=== PATIENT | female | born 1960 | race Caucasian/White ===

== ENCOUNTER 2021-10-03 09:59 | Inpatient (IN) ==
[2021-10-03] MEDS ORDERED: SODIUM CHLORIDE 0.9% 500 ML IV STA (11:39)
[2021-10-03] MEDS ORDERED: MoRPHine SULFATE 4 MG/ML 1 ML CARP\\VIAL IV STA (11:39)
[2021-10-03] MEDS ORDERED: ONDANSETRON INJ 2 MG/ML 2 ML VIAL IV STA (11:39)
--- NOTE | 2021-10-03 11:57 | Emergency Department Note ---
History of Present Illness General Chief complaint: Back Injury/Pain Stated complaint: BACK PAIN, SHOT FOR PAIN MADE IT WORSE Time Seen by Provider: 10/03/21 11:31 Source: patient and family (Spouse who is at the bedside) Mode of arrival: ambulatory Limitations: no limitations History of Present Illness Maximum Pain Intensity: 10 This patient is a 61-year-old female who comes in with back pain. Has had this since about Thanksgiving there is no injury is on the left side it does radiate down her anterior leg she did have an MRI done at [facility] she tells me. She is been followed by [facility] and in fact saw Dr. Lim today who told her that she needed a shot and or surgery they attempted to do an injection but she does not feel it made her any better in fact made her feel worse and was told to come to the ER. She has some numbness and tingling in her left thigh. Nothing particular aches are better or worse. She had normal bowel and bladder function no injury. She has a COVID vaccine. No chest pain, shortness breath, or cough. No dysuriaor hematuria Home Medications Medication Instructions Recorded Confirmed Type lorazepam 0.5 mg tablet (Ativan) 0.5 mg PO BID PRN 03/19/19 10/03/21 History lactobacillus combination no.8 3 3,000 mmu cells PO DAILY 09/23/19 10/03/21 History billion cell capsule (Adult Probiotic) cholecalciferol (vitamin D3) 25 25 mcg PO DAILY 08/24/20 10/03/21 History mcg (1,000 unit) capsule pantoprazole 40 mg tablet,delayed 40 mg PO BID #180 tab 08/24/20 10/03/21 Rx release famotidine 40 mg tablet 40 mg PO DAILY #30 tab 09/23/20 10/03/21 Rx gabapentin 300 mg capsule 300 mg PO QID 10/03/21 10/03/21 History multivitamin 1 tab PO DAILY 10/03/21 10/03/21 History Allergies Allergy/AdvReac Type Severity Reaction Status Date / Time prednisone AdvReac Unknown Anxiety Unverified 10/03/21 11:50 Past Med/Surg History Medical History (Updated 10/03/21 @ 19:34 by Jason Reece MD) Hyperlipidemia pt denies, no meds 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, 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 Trigeminal neuralgia pt denies Surgical History H/O colonoscopy History of appendectomy History of esophagogastroduodenoscopy (EGD) (03/2019) History of left breast biopsy benign History of tonsillectomy History of tooth extraction Family History Family/Other Myocardial infarction Father Family history of reaction to anesthesia difficulty waking Mother Family history of reaction to anesthesia difficulty waking Social History Smoking Status: Never smoker Second Hand Exposure: Yes (father smoked); Hx Alcohol Use: Yes Alcohol type: wine Hx Substance Use: No Preferred Language: Bulgarian Communication Ability: Effective Seo Intern Required: No Beliefs That Will Affect Care: None Current Living Situation: Spouse and Family Current Living Situation Comment: Lives with , son, son's girlfriend and grandchild Other Information That Helps Us Care for You: No Feels Safe at Home: Yes Safety Concerns: Feels Safe At This Time Assistive Devices: Glasses Review of Systems A total of 10 systems reviewed and were otherwise negative Physical Exam Vital Signs Vital Signs - 24 hr 10/03/21 10:08 Temperature 36.2 C L Temperature Source Temporal Artery Scan Pulse Rate 82 Respiratory Rate 20 Respiratory Effort / Characteristics Non-Labored Respiratory Depth Normal Blood Pressure 140/97 Blood Pressure Mean 111 Pulse Oximetry 100 Oxygen Delivery Method Room Air Sepsis Recent Fever Within 48 Hours No Sepsis New/Unexplained Change in Mental Status N/A Sepsis Action Taken by Nursing No Action Required General: Well developed well nourished female who appears significantly uncomfortable secondary to pain in no acute distress, breathing comfortably on room air. Normal speech HEENT: Normal cephalic atraumatic. Pupils are equal round and reactive to light. Extraocular movements are intact. Oropharynx is pink with moist mucous membranes. No swelling of the mouth lips or tongue. Neck: Supple with a midline trachea. No meningeal signs or stiffness, no JVD or bruits. No Stridor. Chest: Clear to auscultation bilaterally. No wheezes or rhonchi. No increased work of breathing. Heart: Regular rate and rhythm without murmurs or gallops. Abdomen: Soft nontender, nondistended without rebound guarding or rigidity. Extremities: No cyanosis clubbing or edema. No calf tenderness or assymetry Spine/Back. Non tender to palpation. No CVA tenderness Skin: Good turgor without rashes. Neurologic exam: Cranial nerves two through 12 are intact. Motor and sensation are intact and symmetrical throughout. She does have intact reflexes on the left patella and Achilles that are symmetrical to the right. Course Administered Medications Gabapentin (Gabapentin 300 Mg Cap) 300 mg PO QID ALBERTINA Stop: 11/02/21 16:59 Last Admin: 10/03/21 18:21 Dose: 300 mg Documented by: [id number] Hydromorphone HCl (Hydromorphone Inj 1 Mg/Ml Syringe) 1 mg IV Q3H PRN PRN Reason: severe pain (scale 7-10) Stop: 10/17/21 12:05 Last Admin: 10/03/21 13:19 Dose: 1 mg Documented by: [id number] Dexamethasone 8 mg/ Syringe 2 mls @ 1 mls/min IV Q8H [facility] Stop: 10/04/21 06:01 Last Admin: 10/03/21 15:19 Dose: 1 mls/min Documented by: [id number] Lactated Ringer's (Lr) 1,000 mls @ 75 mls/hr IV .[id number] [facility] Stop: 11/02/21 12:14 Last Admin: 10/03/21 14:20 Dose: 75 mls/hr Documented by: [id number] Discontinued Medications Sodium Chloride (Nss) 500 mls @ 999 mls/hr IV .Q31M ST[facility] Stop: 10/03/21 12:09 Last Infusion: 10/03/21 12:48 Dose: 0 mls/hr Documented by: [id number] Admin: 10/03/21 12:15 Dose: 999 mls/hr Documented by: [id number] Morphine Sulfate (Morphine Sulfate 4 Mg/Ml 1 Ml Carp\Vial) 4 mg IV NOW STA Stop: 10/03/21 11:40 Last Admin: 10/03/21 12:15 Dose: 4 mg Documented by: [id number] Ondansetron HCl (Ondansetron Inj 2 Mg/Ml 2 Ml Vial) 4 mg IV NOW STA Stop: 10/03/21 11:40 Last Admin: 10/03/21 12:15 Dose: 4 mg Documented by: [id number] Medical Decision Making Differential Diagnosis Back pain, sciatica, lumbar disc disease, electrolyte or metabolic abnormality, infection, Covid Medical Records Attestation: I reviewed the patient's medical records. Home Medications Current Medication List: was personally reviewed by me Laboratory Data Attestation: I reviewed the patient's lab results. Result diagrams: 10/03/21 12:01 10/03/21 12: Lab Results 10/03/21 10/03/21 Range/Units 12: 12: WBC 11.11 H (4.8-10.8) K/uL RBC 4.45 (4.2-5.4) M/uL Hgb 14.1 (12.0-16.0) g/dL Hct 39.9 (37-47) % MCV 89.7 (80-100) fL MCH 31.7 (25-34) pg MCHC 35.3 (32-36) g/dL RDW Std Deviation 39.9 (36.4-46.3) fL RDW Coeff of Cathryn 12.2 (11.5-14.5) % Plt Count 287 (130-400) K/uL MPV 11.1 H (7.4-10.4) fL Immature Gran % (Auto) 0.4 % Neut % (Auto) 81.6 % Lymph % (Auto) 14.8 % [place] % (Auto) 2.8 % Eos % (Auto) 0.2 % Baso % (Auto) 0.2 % Neut # (Auto) 9.08 H (1.4-6.5) K/uL Lymph # (Auto) 1.64 (1.2-3.4) K/uL [place] # (Auto) 0.31 (0.11-0.59) K/uL Eos # (Auto) 0.02 (0-0.5) K/uL Baso # (Auto) 0.02 (0-0.2) K/uL Immature Gran # (Auto) 0.04 H (0.00-0.02) K/uL Sodium 136 (136-145) mmol/L Potassium 3.8 (3.5-5.1) mmol/L Chloride 103 (98-107) mmol/L Carbon Dioxide 24 (21-32) mmol/L Anion Gap 9 (3-11) BUN 12 (6-23) mg/dl Creatinine 0.79 (0.6-1.2) mg/dl Est Cr Clr Drug Dosing Not Reportable Est GFR ( Amer) 92.3 ml/min Est GFR (Non-Af Amer) 79.7 ml/min BUN/Creatinine Ratio 15.2 (10-20) Glucose 106 H (70-99(Fasting)) mg/dl Calcium 9.8 (8.5-10.1) mg/dl Total Bilirubin 0.7 (0.2-1.0) mg/dl AST 17 (13-39) U/L ALT 23 (7-52) U/L Alkaline Phosphatase 60 (34-104) U/L Total Protein 7.1 (6.0-8.3) gm/dl Albumin 4.5 (3.4-5.0) gm/dl Globulin 2.6 (2.5-4.0) gm/dl Albumin/Globulin Ratio 1.7 (0.9-2) Lipase 13 (11-82) U/L MDM Narrative This patient comes in as described above she was referred over by orthopedist after she has had continuing pain in fact she seems to have gotten worse since she had her injection today. IV access were established was given morphine 4 mg IV and Zofran 4 mg IV. Blood work was obtained and I did attempt to call Dr. Abad. I did talk to Dr. Jenniffer Hamilton's PA she is going to admit the patient for pain management and further orthospine evaluation and she may ultimately need surgery. I did review the patient's history with her and the patient does have indeed an L2-3 disc on the left which is likely causing her symptoms. She has no acute electrolyte or metabolic abnormalities. White count is mildly elevated but she has nothing else to suggest infection. She will be admitted for pain management and spine evaluation Impression & Plan Back pain, Lumbar radiculopathy, Degenerative disc disease, lumbar, Lab test negative for COVID-19 virus Discharge Plan Visit Data Chief Complaint: Back Injury/Pain Stated Complaint: BACK PAIN, SHOT FOR PAIN MADE IT WORSE ED Provider: Jason Reece Discharge Problem: Back pain, Lumbar radiculopathy, Degenerative disc disease, lumbar, Lab test negative for COVID-19 virus Patient Disposition: Admitted As Inpatient Discharge Instructions Interventions: ED Discharge Assessment Last Done: 10/03/21 16:04
[2021-10-03] MEDS ORDERED: ACETAMINOPHEN 500 MG TAB PO PRN (12:06)
[2021-10-03] MEDS ORDERED: METOCLOPRAMIDE HCL INJ 5 MG/ML 2 ML VIAL IV PRN (12:06)
[2021-10-03] MEDS ORDERED: PROMETHAZINE HCL 12.5 MG in SODIUM CHLORIDE 0.9% 50 ML IV PRN (12:06)
[2021-10-03] MEDS ORDERED: oxyCODONE HCL IR 5 MG TAB (IMMEDIATE RELEASE) PO PRN (12:06)
[2021-10-03] MEDS ORDERED: diphenhydrAMINE Capsule 25 MG CAP PO PRN (12:06)
[2021-10-03] MEDS ORDERED: ONDANSETRON 4 MG OD TAB PO PRN (12:06)
[2021-10-03] MEDS ORDERED: ACETAMINOPHEN 1,000 MG/100 ML VIAL IV PRN (12:06)
[2021-10-03] MEDS ORDERED: traMADol HCL 50 MG TABLET PO PRN (12:06)
[2021-10-03] MEDS ORDERED: ONDANSETRON INJ 2 MG/ML 2 ML VIAL IV PRN (12:06)
[2021-10-03] MEDS ORDERED: LORazepam 2 MG/1 ML VIAL IV PRN (12:06)
[2021-10-03] MEDS ORDERED: HYDROmorphone INJ 0.5 MG/0.5 ML SYR IV PRN (12:06)
[2021-10-03] MEDS ORDERED: NALOXONE HCL 0.4 MG/1 ML VIAL/CARP IV PRN (12:06)
[2021-10-03 12:16] LABS: Basophils # (auto) 0.02 K/uL (0-0.2); Basophils % (auto) 0.2 %; Eosinophils # (auto) 0.02 K/uL (0-0.5); Eosinophils % (auto) 0.2 %; Hematocrit (blood only) 39.9 % (37-47); Hemoglobin 14.1 g/dL (12.0-16.0); Immature Granulocytes # (auto) 0.04 K/uL (0.00-0.02); Immature Granulocytes % (auto) 0.4 %; Lymphocytes # (auto) 1.64 K/uL (1.2-3.4); Lymphocytes % (auto) 14.8 %; Mean Corpuscular Hemoglobin 31.7 pg (25-34); Mean Corpuscular Hgb Conc 35.3 g/dL (32-36); Mean Corpuscular Volume 89.7 fL (80-100); Mean Platelet Volume 11.1 fL (7.4-10.4); Monocytes # (auto) 0.31 K/uL (0.11-0.59); Monocytes % (auto) 2.8 %; Neutrophils # (auto) 9.08 K/uL (1.4-6.5); Neutrophils % (auto) 81.6 %; Platelet Count 287 K/uL (130-400); RDW Coefficient of Variation 12.2 % (11.5-14.5); RDW Standard Deviation 39.9 fL (36.4-46.3); Red Blood Count 4.45 M/uL (4.2-5.4); White Blood Count 11.11 K/uL (4.8-10.8)
[2021-10-03 12:36] LABS: Alanine Aminotransferase 23 U/L (7-52); Albumin Globulin Ratio 1.7 (0.9-2); Albumin Level 4.5 gm/dl (3.4-5.0); Alkaline Phosphatase 60 U/L (34-104); Anion Gap 9 (3-11); Aspartate Aminotransferase 17 U/L (13-39); BUN Creatinine Ratio 15.2 (10-20); Bilirubin,Total 0.7 mg/dl (0.2-1.0); Blood Urea Nitrogen 12 mg/dl (6-23); Calcium 9.8 mg/dl (8.5-10.1); Carbon Dioxide 24 mmol/L (21-32); Chloride 103 mmol/L (98-107); Est GFR (African American) 92.3 ml/min; Est GFR (Non-African American) 79.7 ml/min; Globulin 2.6 gm/dl (2.5-4.0); Glucose 106 mg/dl (70-99(Fasting)); Lipase 13 U/L (11-82); Potassium 3.8 mmol/L (3.5-5.1); Sodium 136 mmol/L (136-145); Total Protein 7.1 gm/dl (6.0-8.3)
--- NOTE | 2021-10-03 12:58 | Electrocardiogram Report ---
Test Reason : Blood Pressure : / mmHG Vent. Rate : 077 BPM Atrial Rate : 077 BPM P-R Int : 168 ms QRS Dur : 084 ms QT Int : 354 ms P-R-T Axes : 051 020 036 degrees QTc Int : 400 ms Poor data quality, interpretation may be adversely affected Normal sinus rhythm Normal ECG No previous ECGs available Confirmed by Stoney Kovacs ([id number]) on 10/03/2021 12:58:19 PM Referred By: ED Confirmed By:Elpidio Kovacs
[2021-10-03] MEDS: HYDROmorphone INJ 1 MG/ML SYRINGE IV PRN (13:19)
[2021-10-03] MEDS: LACTATED RINGER'S 1,000 ML IV SCH ×2 (14:20→22:31)
[2021-10-03] MEDS: dexAMETHasone 8 MG in SYRINGE 0 ML IV SCH ×2 (15:19→21:04)
--- NOTE | 2021-10-03 16:09 | Hospitalist Consultation ---
Date of Consultation October 03, 2021 Assessment & Plan (1) Back pain: Lower back pain with radiculopathy- Primary orthopaedics - Diet per Orthopaedics - IVF per Orthopaedics - VTE prophylaxis per Orthopaedics - Pain control per Orthopaedics- appropriate with rescue Narcan available and Pain is controlled - ABX per Orthopaedics (2) GERD (gastroesophageal reflux disease): Chronic GERD with Gastropareses - Change Protonix 40mg PO BID to IV while NPO - Continue throughout hospitalization while on steroids (3) Anxiety: On Ativan PO PRN at home - IV Ativan and PO Ativan available (4) Gastroparesis: Follows GI Supervising Physician Co-Signing Physician Notes SILVANO Supervision note: I have personally seen and examined the patient and discussed and verified the [place] points of the history and physical along with the plan with SILVANO [place] with the following exceptions and/or additions: This patient is a 61-year-old female with history of lower back pain with left lower extremity radiculopathy since June but acutely worse in the last several days. She was seen by pain management today and had an injection and had severe pain. She has not been able to get out of bed for the last 3 days. She was referred to the ER for pain control and admitted under the orthopedic spine service. The hospital service was consulted for medical management and preoperative assessment. She denies any chest pain or shortness of breath, and before her back pain became more severe she was quite active. No history of cardiac or pulmonary issues. History and ROS reviewed as above Vitals reviewed Gen: AAOx3, NAD HEENT: Anicteric sclerae, EOMI CV: RRR no mgr nl S1S2 Pulm: CTAB no wcr Abd: +BS soft NT ND no masses or hernias Ext: No edema, 2+ DP pulses Skin: No rashes, warm/dry Neuro: Full strength throughout but with pain with movement of the left lower extremity Labs reviewed, ECG reviewed 61-year-old female here with intractable pain secondary to lumbar radiculopathy, admitted for further evaluation management by orthopedic spine surgeon From a medical standpoint, she is at low perioperative risk for cardiovascular morbidity mortality and should proceed with any medical procedure as desired including intermediate risk surgery with orthopedics The hospitalist service will continue to follow along for now History of Present Illness Reason for Consultation: Medical managment Requesting Physician: Dr. Abad Attending Physician: Dr. Abad History of Present Illness 61 YOF with past medical history of: gastroparesis, GERD, back pain, anxiety. Patient has been having back pain since June- failed conservative therapy and was referred to [facility] for worsening of her lower back pain failing/not able achieve therapeutics from injection attempted this morning. Patient is admitted under Dr. Abad. Hospitalist was consulted for medical management. The patient denies any cardio-pulmonary disease and prior to her onset of lower back pain she was active person who went to the gym daily and enjoyed walking. She had no activity limitations. She does not smoke and occasionally drinks alcohol. She recalls no history of mitral valve problems listed in her medical history. She is followed by gastroenterology for gastroparesis and is currently on Pantoprazole 40mg PO BID. She reports having an UTI last month and had finished her ABX with resolution of symptoms. Her pain is currently controlled following interventions ordered by primary service. She remains NPO for further surgical evaluation. She has had anesthesia before without any complications. She is low risk for surgical procedure. Her perioperative risk estimation for perioperative myocardial infarction or cardiac arrest is: 0.02% COVID test is: NEGATIVE Additions: - Protonix 40mg IV BID Allergies Allergy/AdvReac Type Severity Reaction Status Date / Time prednisone AdvReac Unknown Anxiety Unverified 10/03/21 11:50 Home Medications Medication Instructions Recorded Confirmed Type lorazepam 0.5 mg tablet (Ativan) 0.5 mg PO BID PRN 03/19/19 10/03/21 History lactobacillus combination no.8 3 3,000 mmu cells PO DAILY 09/23/19 10/03/21 History billion cell capsule (Adult Probiotic) cholecalciferol (vitamin D3) 25 25 mcg PO DAILY 08/24/20 10/03/21 History mcg (1,000 unit) capsule pantoprazole 40 mg tablet,delayed 40 mg PO BID #180 tab 08/24/20 10/03/21 Rx release famotidine 40 mg tablet 40 mg PO DAILY #30 tab 09/23/20 10/03/21 Rx gabapentin 300 mg capsule 300 mg PO QID 10/03/21 10/03/21 History multivitamin 1 tab PO DAILY 10/03/21 10/03/21 History Patient History Medical History (Updated 10/03/21 @ 16:01 by SILVANO Matthews) Hyperlipidemia pt denies, no meds 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, 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 Trigeminal neuralgia pt denies Surgical History H/O colonoscopy History of appendectomy History of esophagogastroduodenoscopy (EGD) (03/2019) History of left breast biopsy benign History of tonsillectomy History of tooth extraction Family History Family/Other Myocardial infarction Father Family history of reaction to anesthesia difficulty waking Mother Family history of reaction to anesthesia difficulty waking Social History Smoking Status: Never smoker Second Hand Exposure: Yes (father smoked); Hx Alcohol Use: Yes Alcohol type: wine Hx Substance Use: No Preferred Language: Japanese Communication Ability: Effective Subacute Nurse Required: No Beliefs That Will Affect Care: None Current Living Situation: Spouse and Family Current Living Situation Comment: Lives with , son, son's girlfriend and grandchild Feels Safe at Home: Yes Assistive Devices: Glasses Review of Systems Review of Systems: REVIEW OF SYSTEMS: Constitutional: No fever, sweats or chills Eyes: No diplopia, no worsening or blurred vision ENT: normal hearing, no trouble swallowing Respiratory: No cough, sputum, dyspnea at rest or on exertion Cardiovascular: No chest pain, tightness or palpitations Abdomen: No pain, nausea, vomiting, diarrhea or constipation Musculoskeletal: (+) back pain, with weakness, No calf pain, swelling Neurologic: (+) numbness tingling, weakness Psychiatric: (+) anxiety; NO depression Skin: No rash or itch Physical Exam Physical Exam: PHYSICAL EXAM: General: awake, alert, no apparent distress Head: Normocephalic, atraumatic ENT: PERRL, EOMI, no pharyngeal exudate, mucous membranes moist Neuro: AAO x 3, speech clear and appropriate, strength intact bilaterally 5/5, sensation intact and equal all extremities and dermatomes, no pronator drift, radiculopathy with acute pain onset along the L3-L5 distribution Chest: equal rise and fall of the chest, no accessory muscle use, no heaves or thirlls, Clear to auscultation, on room air, Cardiac: Regular rate and rhythm, telemetry reviewed- NSR, skin warm dry, cap refill <3 seconds, peripheral pulses +2 no JVD, no murmur, no edema GI: NABS x 4 quadrants, soft, nontender to palpation, no rebound, guarding or tenderness : Spontaneously voiding, no pain, no CVA tenderness, Extremities: Normal inspection, no peripheral edema or erythema, calfs nontender to palpation Psych: Normal mood and affect Skin: no rash or erythema Results & Data Results & Data ([facility]) Vital Signs (Past 12 Hours) Vital Signs Temp Pulse Resp BP Pulse Ox 10/03/21 10:08 36.2 C L 82 20 140/97 100 Laboratory Results Abnormal lab results 10/03/21 10/03/21 Range/Units 12:01 12:01 WBC 11.11 H (4.8-10.8) K/uL MPV 11.1 H (7.4-10.4) fL Neut # (Auto) 9.08 H (1.4-6.5) K/uL Immature Gran # (Auto) 0.04 H (0.00-0.02) K/uL Glucose 106 H (70-99(Fasting)) mg/dl Diagnostic Findings No films available Medications Administered Hydromorphone HCl (Hydromorphone Inj 1 Mg/Ml Syringe) 1 mg IV Q3H PRN PRN Reason: severe pain (scale 7-10) Stop: 10/17/21 12:05 Last Admin: 10/03/21 13:19 Dose: 1 mg Documented by: [id number] Dexamethasone 8 mg/ Syringe 2 mls @ 1 mls/min IV Q8H [facility] Stop: 10/04/21 06:01 Last Admin: 10/03/21 15:19 Dose: 1 mls/min Documented by: [id number] Lactated Ringer's (Lr) 1,000 mls @ 75 mls/hr IV .[id number] [facility] Stop: 11/02/21 12:14 Last Admin: 10/03/21 14:20 Dose: 75 mls/hr Documented by: [id number] Discontinued Medications Sodium Chloride (Nss) 500 mls @ 999 mls/hr IV .Q31M [facility] Stop: 10/03/21 12:09 Last Infusion: 10/03/21 12:48 Dose: 0 mls/hr Documented by: [id number] Admin: 10/03/21 12:15 Dose: 999 mls/hr Documented by: [id number] Morphine Sulfate (Morphine Sulfate 4 Mg/Ml 1 Ml Carp\Vial) 4 mg IV NOW STA Stop: 10/03/21 11:40 Last Admin: 10/03/21 12:15 Dose: 4 mg Documented by: [id number] Ondansetron HCl (Ondansetron Inj 2 Mg/Ml 2 Ml Vial) 4 mg IV NOW STA Stop: 10/03/21 11:40 Last Admin: 10/03/21 12:15 Dose: 4 mg Documented by: [id number] Home Medications lorazepam 0.5 mg tablet (Ativan) 0.5 mg PO BID PRN 03/19/19 [History Confirmed 10/03/21] lactobacillus combination no.8 3 billion cell capsule (Adult Probiotic) 3,000 mmu cells PO DAILY 09/23/19 [History Confirmed 10/03/21] cholecalciferol (vitamin D3) 25 mcg (1,000 unit) capsule 25 mcg PO DAILY 08/24/20 [History Confirmed 10/03/21] pantoprazole 40 mg tablet,delayed release 40 mg PO BID #180 tab 08/24/20 [Rx Confirmed 10/03/21] famotidine 40 mg tablet 40 mg PO DAILY #30 tab 09/23/20 [Rx Confirmed 10/03/21] gabapentin 300 mg capsule 300 mg PO QID 10/03/21 [History Confirmed 10/03/21] multivitamin 1 tab PO DAILY 10/03/21 [History Confirmed 10/03/21] Active Medications Acetaminophen (Acetaminophen 500 Mg Tab) 1,000 mg PO Q8H PRN PRN Reason: MILD Pain Scale 1,2,3 & Pre PT Stop: 11/02/21 12:05 Diphenhydramine HCl (Diphenhydramine Capsule 25 Mg Cap) 25 mg PO Q6H PRN PRN Reason: Allergic Rhinitis/Insomnia Stop: 11/02/21 12:05 Hydromorphone HCl (Hydromorphone Inj 0.5 Mg/0.5 Ml Syr) 0.5 mg IV Q3H PRN PRN Reason: MOD pain (scale 4-6) & Pre PT Stop: 10/17/21 12:05 Hydromorphone HCl (Hydromorphone Inj 1 Mg/Ml Syringe) 1 mg IV Q3H PRN PRN Reason: severe pain (scale 7-10) Stop: 10/17/21 12:05 Last Admin: 10/03/21 13:19 Dose: 1 mg Documented by: Dexamethasone 8 mg/ Syringe 2 mls @ 1 mls/min IV Q8H [facility] Stop: 10/04/21 06:01 Last Admin: 10/03/21 15:19 Dose: 1 mls/min Documented by: Lactated Ringer's (Lr) 1,000 mls @ 75 mls/hr IV .[id number] [facility] Stop: 11/02/21 12:14 Last Admin: 10/03/21 14:20 Dose: 75 mls/hr Documented by: Promethazine HCl 12.5 mg/ (Sodium Chloride) 50.5 mls @ 202 mls/hr IV Q6H PRN PRN Reason: Nausea &/or Vomiting Stop: 11/02/21 12:05 Acetaminophen (Ofirmev) 1,000 mg in 100 mls @ 400 mls/hr IV Q8H PRN PRN Reason: Pain Rating 1-3 & Pre PT Stop: 10/04/21 12:06 Pantoprazole Sodium 40 mg/ (Syringe) 10 mls @ 5 mls/min IV BID [facility] Stop: 11/02/21 20:59 Lorazepam (Lorazepam 0.5 Mg Tab) 0.5 mg PO Q8H PRN PRN Reason: sedation/anxiety Stop: 11/02/21 12:05 Lorazepam (Lorazepam 2 Mg/1 Ml Vial) 0.5 mg IV Q8H PRN PRN Reason: Sedation/Anxiety Stop: 11/02/21 12:05 Metoclopramide HCl (Metoclopramide Hcl Inj 5 Mg/Ml 2 Ml Vial) 10 mg IV Q6H PRN PRN Reason: Nausea &/or Vomiting Stop: 11/02/21 12:05 Naloxone HCl (Naloxone Hcl 0.4 Mg/1 Ml Vial/Carp) 0.1 mg IV Q5M PRN PRN Reason: Oversedation/respiratory dep Stop: 11/02/21 12:05 Ondansetron HCl (Ondansetron Inj 2 Mg/Ml 2 Ml Vial) 4 mg IV Q6H PRN PRN Reason: Nausea &/or Vomiting Stop: 11/02/21 12:05 Ondansetron HCl (Ondansetron 4 Mg Od Tab) 4 mg PO Q6H PRN PRN Reason: Nausea Stop: 11/02/21 12:05 Oxycodone HCl (Oxycodone Hcl Ir 5 Mg Tab (Immediate Release)) 5 - 10 mg PO Q4H PRN PRN Reason: mod to severe pain Stop: 10/17/21 12:05 Tramadol HCl (Tramadol Hcl 50 Mg Tablet) 50 - 100 mg PO Q4H PRN PRN Reason: Moderate-Severe pain & Pre PT Stop: 11/02/21 12:05 ECG Additional Comments: Normal sinus rhythm Normal ECG No previous ECGs available Vent. Rate : 077 BPM Atrial Rate : 077 BPM P-R Int : 168 ms QRS Dur : 084 ms QT Int : 354 ms P-R-T Axes : 051 020 036 degrees QTc Int : 400 ms PG Care Time/CCT Total # of Minutes Spent Total Time Spent with Patient: Total time spent is greater than 50% in coordination of care (as documented) at patient's floor/unit and/or counseling patient: Coding Level of Care Code 04945 Inpt Consult Level 2 Diagnoses Back pain M54.9 GERD (gastroesophageal reflux disease) K21.9 Anxiety F41.9 Gastroparesis K31.84
[2021-10-03] MEDS: GABAPENTIN 300 MG CAP PO SCH ×2 (18:21→19:55)
[2021-10-03] MEDS: PANTOprazole 40 MG in SYRINGE 0 ML IV SCH (19:55)
[2021-10-03] MEDS ORDERED: PANTOprazole 40 MG TAB PO SCH (21:00)
[2021-10-03] MEDS: LORazepam 0.5 MG TAB PO PRN ×2 (21:09→22:31)
[2021-10-04] MEDS: HYDROmorphone INJ 1 MG/ML SYRINGE IV PRN ×4 (03:58→23:47)
[2021-10-04] MEDS: dexAMETHasone 8 MG in SYRINGE 0 ML IV SCH (05:18)
[2021-10-04] MEDS: GABAPENTIN 300 MG CAP PO SCH ×4 (08:29→20:58)
[2021-10-04] MEDS: CHOLECALCIFEROL 1,000 UNITS 25 MCG TAB PO SCH (08:29)
[2021-10-04] MEDS: FAMOTIDINE 40 MG TABLET PO SCH (08:30)
[2021-10-04] MEDS: PANTOprazole 40 MG in SYRINGE 0 ML IV SCH (08:30)
--- NOTE | 2021-10-04 08:46 | History & Physical Report ---
Date of Service October 04, 2021 Assessment & Plan (1) Lumbar radiculopathy: Plan: Patient is been admitted to Dr. Abad service. She has a known far lateral disc herniation at L3-4 on the left. This is consistent with her pain pattern. She has trialed and failed conservative therapy including physical therapy and pain management injections. She is unable to manage the pain at home. For presented to the emergency room. We have discussed pursuing surgical intervention in the form of a posterior lumbar decompression/fusion and interbody fusion at the L3-4 level. Risk, benefits, pros cons and alternative outlined in detail. Patient is comfortable with move moving forward with above- mentioned surgical planning. Admission and Anticipated Discharge Date Admission Date: October 03, 2021 History of Present Illness Chief Complaint: Worsening left lower extremity pain Primary Care Provider: Deshaun aPcheco PA-C Is a very pleasant 61-year-old female who presented to the ER yesterday after receiving the injection from Dr. Norton in the morning. The injection exacerbated her pain. Symptoms have been ongoing since June without precipitating accident, trauma, fall. She has declined over the past 3 days and unable to get out of bed. Normally she is quite active going to the gym and ambulating 5 to 6 miles a day. Current symptoms are 100% left lower extremity involving the left buttock left groin anterior thigh to her knee. Right leg is asymptomatic. Denies bowel bladder changes. She has been taking Tylenol for pain control at home. She has completed a course of physical therapy in June without improvement. Again received [address] Norton yesterday which exacerbated her symptoms therefore leading her to the emergency room. Allergies Allergy/AdvReac Type Severity Reaction Status Date / Time prednisone AdvReac Unknown Anxiety Unverified 10/03/21 11:50 Home Medications Medication Instructions Recorded Confirmed Type lorazepam 0.5 mg tablet (Ativan) 0.5 mg PO BID PRN 03/19/19 10/03/21 History lactobacillus combination no.8 3 3,000 mmu cells PO DAILY 09/23/19 10/03/21 History billion cell capsule (Adult Probiotic) cholecalciferol (vitamin D3) 25 25 mcg PO DAILY 08/24/20 10/03/21 History mcg (1,000 unit) capsule pantoprazole 40 mg tablet,delayed 40 mg PO BID #180 tab 08/24/20 10/03/21 Rx release famotidine 40 mg tablet 40 mg PO DAILY #30 tab 09/23/20 10/03/21 Rx gabapentin 300 mg capsule 300 mg PO QID 10/03/21 10/03/21 History multivitamin 1 tab PO DAILY 10/03/21 10/03/21 History Past Med/Surg History Medical History Hyperlipidemia pt denies, no meds 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, 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 Trigeminal neuralgia pt denies Surgical History H/O colonoscopy History of appendectomy History of esophagogastroduodenoscopy (EGD) (03/2019) History of left breast biopsy benign History of tonsillectomy History of tooth extraction Family History Family/Other Myocardial infarction Father Family history of reaction to anesthesia difficulty waking Mother Family history of reaction to anesthesia difficulty waking Social History Smoking Status: Never smoker Second Hand Exposure: Yes (father smoked); Hx Alcohol Use: Yes Alcohol type: wine Hx Substance Use: No Preferred Language: Danish Communication Ability: Effective 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 Beliefs That Will Affect Care: None marital status: Current Living Situation: Spouse and Family Current Living Situation Comment: Lives with , son, son's girlfriend and grandchild How many Children do You have: 1 Feels Safe at Home: Yes Assistive Devices: None Review of Systems Review of Systems: All systems reviewed & are unremarkable except as noted in HPI & below Physical Exam Physical Exam: She is lying in bed on her right side Moderate distress Alert and oriented x3 Positive straight leg raise on the left negative contralateral straight leg raise 4+/5 left quadricep 5/5 bilateral EHL, dorsiflexion, plantar flexion, hamstring, hip abductor and hip adductor bilaterally Constitutional: WD/WN, vitals as above Eyes: normal visual plunkett by confrontation ENMT: external ear and nose normal, oropharynx normal Neck: normal visual inspection Respiratory: normal respiratory effort Cardiovascular: Extremities: normal capillary refill Gastrointestinal (Abdomen): Inspection/Auscultation: abdomen normal to inspection Musculoskeletal: Spine: + pain with thoraco-lumbar ROM and + straight leg raise positive Extremities: extremities normal to inspection Skin: no rashes, warm and dry Neurologic: normal touch/pain/proprioception and moves all extremities Psychiatric: A+Ox3, euthymic affect Results & Data Results & Data ([facility]) Vital Signs (Past 12 Hours) Vital Signs Temp Pulse Pulse Resp BP Pulse Ox 10/04/21 07:47 36.4 C L 82 18 110/69 94 10/03/21 22:29 36.6 C 84 18 131/79 97
[2021-10-04] MEDS: LORazepam 0.5 MG TAB PO PRN (08:55)
[2021-10-04] MEDS: LACTATED RINGER'S 1,000 ML IV SCH (12:06)
[2021-10-04] MEDS ORDERED: fentaNYL citrate 100 MCG/2 ML VIAL ONE (12:24)
[2021-10-04] MEDS ORDERED: MIDAZOLAM HCL 1 MG/ML 2ML VIAL ONE (12:24)
--- NOTE | 2021-10-04 12:52 | Hospitalist Progress Note ---
Date of Service October 04, 2021 Assessment & Plan (1) Back pain: Plan: Lower back pain with radiculopathy- Primary orthopedics - Diet per Orthopedics - IVF per Orthopedics - VTE prophylaxis per Orthopedics - Pain control per Orthopedics-appropriate with rescue Narcan available and Pain is controlled - Preop ABX per Orthopedics (2) GERD (gastroesophageal reflux disease): Plan: Chronic GERD with Gastroparesis - Change Protonix 40mg PO BID to IV while NPO - Continue throughout hospitalization while on steroids (3) Anxiety: Plan: On Ativan PO PRN at home - IV Ativan and PO Ativan available (4) Gastroparesis: Plan: Follows GI Plan: At this point patient is medically stable to proceed with planned surgical intervention this afternoon. Recommend follow up labs in AM including H&H and B MP. Can advance diet as tolerated following procedure and transition medications back to p.o. At this time I have no further recommendations for this patient. Medicine will sign off, will continue to do daily chart checks. Thank you for allowing us to participate in her care. Admission and Anticipated Discharge Date Admission Date: October 03, 2021 Supervising Physician Co-Signing Physician Notes chart reviewed, case d/w Gita Wynn PAC. as above Subjective Patient seen on daily rounds this morning. Other than her complaints of intractable low back pain with radiation down her left lower extremity she has no complaints. She denies chest pain, shortness of breath, nausea, vomiting, diarrhea, headache, or complaints. Denies fever/chills. She is for lumbar fusion with Dr. Abad this afternoon. Review of Systems Review of Systems: REVIEW OF SYSTEMS: Constitutional: No fever, sweats or chills Eyes: No diplopia, no worsening or blurred vision ENT: normal hearing, no trouble swallowing Respiratory: No cough, sputum, dyspnea at rest or on exertion Cardiovascular: No chest pain, tightness or palpitations Abdomen: No pain, nausea, vomiting, diarrhea or constipation Musculoskeletal: (+) back pain w/ radiation down L leg and weakness, No calf pain, swelling Neurologic: (+) numbness tingling, weakness Psychiatric: (+) anxiety; NO depression Skin: No rash or itch Physical Exam Physical Exam: GENERAL: 61 yo well-developed, well-nourished WF. NAD. LUNGS: Clear to auscultation bilaterally. CARDIOVASCULAR: Regular rate and rhythm. ABDOMEN: Soft, non-tender and non-distended. BS normal x 4 quad. EXTREMITIES: No edema. Non-tender. Peripheral pulses +2/4. NEUROLOGIC: A&O x3. PSYCHIATRIC: Cooperative. Appropriate mood and affect. SKIN: Warm, dry, intact. No rashes or lesions. Results & Data Results & Data ([facility]) Vital Signs (Past 12 Hours) Vital Signs Temp Pulse Resp BP Pulse Ox 10/04/21 11:00 36.7 C 76 18 119/73 93 10/04/21 07:47 36.4 C L 82 18 110/69 94 Laboratory Results No labs collected this morning PG Care Time/CCT Total # of Minutes Spent Total Time Spent with Patient: Total time spent is greater than 50% in coordination of care (as documented) at patient's floor/unit and/or counseling patient: Coding Level of Care Code 92209 Subseq Hosp Care Lvl 2 Diagnoses Back pain M54.9 GERD (gastroesophageal reflux disease) K21.9 Anxiety F41.9 Gastroparesis K31.84
--- NOTE | 2021-10-04 14:14 | History & Physical Bridge Note ---
Date of Service October 04, 2021 History & Physical Bridge Note I have examined the patient, reviewed the History & Physical and in the interval since the performance of the History & Physical I have noted the following changes of clinical significance: no changes noted Lumbar decompression fusion L3-L4
[2021-10-04] MEDS ORDERED: ceFAZolin 2,000 MG/15 ML IV PUSH IV ONE (14:21)
[2021-10-04] MEDS ORDERED: ONDANSETRON INJ 2 MG/ML 2 ML VIAL IV PRN ×2 (14:22→17:29)
[2021-10-04] MEDS ORDERED: HYDROmorphone INJ 1 MG/ML SYRINGE IV PRN (14:22)
[2021-10-04] MEDS ORDERED: ATROPINE SULFATE 0.1 MG/ML 10ML SYR IV PRN (14:22)
[2021-10-04] MEDS ORDERED: PROMETHAZINE HCL 12.5 MG in SODIUM CHLORIDE 0.9% 50 ML IV PRN ×2 (14:22→17:29)
--- NOTE | 2021-10-04 14:22 | Anesthesiology Consultation ---
Date of Service October 04, 2021 Assessment & Plan (1) Encounter for pre-operative examination: Chart Review Chart Review: Acceptable Risk for Surgery History Surgery Operation Date: 10/04/21 12:30 Proposed Procedures p L3-L4 Posterior Lumbar Fusion with Interbody Fusion - Benjamin Abad DO Operation Date: 10/05/21 12:45 Proposed Procedures p L3-L4 Posterior Lumbar Fusion with Interbody Fusion - Benjamin Abad DO Height/Weight Height: 5 ft 4 in Weight: 75 kg Allergies Allergy/AdvReac Type Severity Reaction Status Date / Time prednisone AdvReac Unknown Anxiety Unverified 10/03/21 11:50 Medications Home Medications Medication Instructions Recorded Confirmed Last Taken lorazepam 0.5 mg tablet (Ativan) 0.5 mg PO BID PRN 03/19/19 10/03/21 04/05/19 09:00 lactobacillus combination no.8 3 3,000 mmu cells PO DAILY 09/23/19 10/03/21 Unknown billion cell capsule (Adult Probiotic) cholecalciferol (vitamin D3) 25 25 mcg PO DAILY 08/24/20 10/03/21 Unknown mcg (1,000 unit) capsule pantoprazole 40 mg tablet,delayed 40 mg PO BID #180 tab 08/24/20 10/03/21 Unknown release famotidine 40 mg tablet 40 mg PO DAILY #30 tab 09/23/20 10/03/21 Unknown gabapentin 300 mg capsule 300 mg PO QID 10/03/21 10/03/21 Unknown multivitamin 1 tab PO DAILY 10/03/21 10/03/21 Unknown Active Medications Generic Name Dose Route Start Last Admin Trade Name Balajiq PRN Reason Stop Dose Admin Famotidine 40 mg 10/04/21 09:00 10/04/21 08:30 Famotidine 40 Mg Tablet PO 11/03/21 08:59 40 mg DAILY ALBERTINA Administration Gabapentin 300 mg 10/03/21 17:00 10/04/21 13:15 Gabapentin 300 Mg Cap PO 11/02/21 16:59 300 mg QID ALBERTINA Administration Hydromorphone HCl 1 mg 10/03/21 12:06 10/04/21 10:10 Hydromorphone Inj 1 Mg/Ml Syringe IV 10/17/21 12:05 1 mg Q3H PRN Administration severe pain (scale 7-10) Lactated Ringer's 1,000 mls @ 75 mls/hr 10/03/21 12:15 10/04/21 12:06 Lr IV 11/02/21 12:14 75 mls/hr .[id number] ALBERTINA Administration Lorazepam 0.5 mg 10/03/21 12:06 10/04/21 08:55 Lorazepam 0.5 Mg Tab PO 11/02/21 12:05 0.5 mg Q8H PRN Administration sedation/anxiety Oxycodone HCl 5 - 10 mg 10/03/21 12:06 10/03/21 19:54 Oxycodone Hcl Ir 5 Mg Tab (Immediate Release) PO 10/17/21 12:05 10 mg Q4H PRN Administration mod to severe pain Vitamin D 1,000 units 10/04/21 09:00 10/04/21 08:29 Cholecalciferol 1,000 Units 25 Mcg Tab PO 11/03/21 08:59 1,000 units DAILY ALBERTINA Administration NPO Date Last Intake of Fluids: 10/03/21 Time Last Intake of Fluids: 23:00 Last Intake of Fluids Comment: sip with meds Date Last Intake of Solids: 10/03/21 Time Last Intake of Solids: 17:00 Past Medical History Medical History (Updated 10/04/21 @ 14:22 by Renaldo Portillo MD) Hyperlipidemia pt denies, no meds 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, 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 Trigeminal neuralgia pt denies Past Family History Family History Family/Other Myocardial infarction Father Family history of reaction to anesthesia difficulty waking Mother Family history of reaction to anesthesia difficulty waking Past Surgical History Surgical History H/O colonoscopy History of appendectomy History of esophagogastroduodenoscopy (EGD) (03/2019) History of left breast biopsy benign History of tonsillectomy History of tooth extraction Social History Smoking Status: Never smoker Hx Alcohol Use: Yes Alcohol type: wine alcohol intake frequency: holidays/special occasions only Hx Substance Use: No substance use type: does not use Physical Exam Vital Signs Last Vital Signs Temp 37.8 C H 10/04/21 13:29 Pulse 76 10/04/21 13:29 Resp 20 10/04/21 13:29 BP 136/76 10/04/21 13:29 Pulse Ox 95 10/04/21 13:29 Testing Laboratory Results 10/03/21 12:01 10/03/21 12:01 Electrocardiogram Date: 10/03/21 Findings: + NSR @ (23)
[2021-10-04] MEDS ORDERED: EPINEPHrine INJ 1 MG/ML AMP ONE (14:32)
[2021-10-04] MEDS ORDERED: ceFAZolin 330 MG/ML 1 GM VIAL ONE (14:32)
[2021-10-04] MEDS ORDERED: BUPIVACAINE 0.5 % 5 MG/1 ML MPF 30ML VIAL ONE (14:32)
[2021-10-04] MEDS ORDERED: HYDROmorphone INJ 2 MG/ML SYR/VIAL ONE (15:30)
[2021-10-04] MEDS ORDERED: FLOSEAL HEMOSTATIC MATRIX 10ML TOP ONE (15:45)
[2021-10-04] MEDS ORDERED: LARYING-O-JET KIT (LTA) ONE (15:47)
[2021-10-04] MEDS ORDERED: ROCURONIUM BROMIDE 10 MG/ML 5 ML VIAL IV ONE (15:47)
[2021-10-04] MEDS ORDERED: ONDANSETRON INJ 2 MG/ML 2 ML VIAL ONE (15:47)
[2021-10-04] MEDS ORDERED: NEOSTIGMINE METHYLSULFATE 1 MG/ML 10ML VIAL ONE (15:47)
[2021-10-04] MEDS ORDERED: LIDOCAINE 2% 2 ML VIAL/AMP(20MG/ML) INFIL ONE (15:47)
[2021-10-04] MEDS ORDERED: PHENYLEPHRINE 100MCG/ML 5ML SYR ONE (15:47)
[2021-10-04] MEDS ORDERED: GLYCOPYRROLATE 0.2 MG/ML VIAL ONE (15:47)
[2021-10-04] MEDS ORDERED: ePHEDrine sulfate 50 MG/ML AMP ONE (15:47)
[2021-10-04] MEDS ORDERED: PROPOFOL IV EMULSION 10 MG/ML 20 ML VIAL IV ONE (15:47)
--- NOTE | 2021-10-04 16:36 | Operative Report ---
Post Operative Report Pre & Post Diagnosis Operation Date: 10/04/21 12:30 Pre-Op Diagnosis: Lumbar radiculopathy Post-Op Diagnosis: Lumbar radiculopathy Operation Date: 10/05/21 12:45 <No data on this case meets the specified criteria> I identified the patient and participated in the time-out.: Yes Procedure Operation Date: 10/04/21 12:30 Actual Procedure 1. Lumbar decompression with bilateral medial facetectomies and foraminotomies L2-L3 L3-L4. #2 posterior spinal fusion L3-L4. #3 patient posterior instrumentation L3-L4. #4 interbody fusion L3-L4. #5 placement peek cage 12 x 22 mm at L3-L4. #6 placement locally harvested morselized autograft in the posterior gutters. #7 placement infuse collagen sponge, and master graft in the posterior lateral gutters and I factor in the body space.rer Operation Date: 10/05/21 12:45 <No data on this case meets the specified criteria> Surgeon Benjamin Abad, [employer] Specialist Daisy Jessica Estimated Blood Loss 150 Findings Consistent with Post-Op Diagnosis Specimens none Indications This is a 61-year-old female who presents with severe left leg pain and weakness. Subsequently she is here for urgent lumbar decompression fusion. Description of Procedure Patient was met with identified informed consent obtained patient was then taken to the operative suite underwent a patient placed in the prone position the [place] table top Kwesi frame. All bony prominences well-padded eyes inspected to ensure no external pressure placed upon the. This point lumbar spine was prepped and draped in a sterile fashion. Sharp dissection with the assistance of Bovie cautery was performed down to and exposing the lamina and transverse processes of L3 on L4. From caudal to cephalad fashion complete laminectomy of L3 partial laminectomy of L2 was performed including bilateral medial facetectomies and foraminotomies addressing severe neuroforaminal disease vertically on the left with evidence of a massive disc herniation extending out into the neural foramen. After complete decompression pedicle screws are in place and L2-3 L4 bilaterally with assistance of fluoroscopy and appropriate sized simone placed. By way of a transforaminal portion left complete discectomy of L3-L4 was performed endplates curetted to subcortically bone and a 12 x 22 mm peek cage filled I factor tapped in position. The rods were then locked into final position bilaterally. The transverse processes of L2 and L3 burred to subcortically bone. Infuse collagen sponge master graft local graft was placed in the posterior gutters. 15 round EDNA drain inserted. Incision was then closed with 1 Vicryl in the fascia 2-0 Vicryl subcutaneously and 4 Monocryl for final skin closure. Steri-Strip Steri-Strips placed. Patient will continue PACU stable condition. Please note spinal cord monitoring was utilized at the procedure no changes noted. Lastly Daisy Jessica was present at the entire surgery and while the patient positioning complex portions of the surgery and fascial closure. I attest to the content of the Intraoperative Record and any orders documented therein. Any exceptions are noted below.
--- NOTE | 2021-10-04 17:02 | Fluoroscopy Report ---
INTRAOPERATIVE RADIOGRAPHS CLINICAL HISTORY: Lumbar spinal fusion. Fluoroscopy time: 14 seconds. FINDINGS: 2 spot fluoroscopic views of the lumbar spine are presented. There has been discectomy at L 3-L4 with laminectomy and posterior fusion at this level. Interpedicular screws are in place. The ort hopedic hardware appears intact. IMPRESSION: Intraoperative images from L3-L4 spinal fusion as above. Electronically signed by: Randell Hoffman M.D. 10/04/2021 5:00 PM
--- NOTE | 2021-10-04 17:15 | Anesthesiology Progress Note ---
Date of Service October 04, 2021 Anesthesia Post Procedure Vital Signs Vital Signs: Temp Pulse Pulse Pulse Resp BP Pulse Ox 10/04/21 17:05 91 H 19 118/67 98 10/04/21 16:55 104 H 18 142/79 H 97 10/04/21 16:48 97.2 F L 102 H 12 132/82 97 10/04/21 13:29 100.0 F H 76 20 136/76 95 10/04/21 11:00 98.1 F 76 18 119/73 93 10/04/21 07:47 97.5 F L 82 18 110/69 94 10/03/21 22:29 97.9 F 84 18 131/79 97 10/03/21 20:00 74 18 127/80 96 10/03/21 18:33 98.4 F 84 18 137/87 95 Pain Intensity Back: Pain Intensity: 3 Transfer of Care Handoff Completed per policy Notes Mental Status: alert / awake / arousable and participated in evaluation Patient Amnestic to Procedure: Yes Nausea / Vomiting: adequately controlled Pain: adequately controlled Airway Patency, RR, SpO2: stable & adequate BP & HR: stable & adequate Hydration State: stable & adequate Anesthetic Complications: no major complications apparent and Pt Satisfied with anesthetic care
[2021-10-04] MEDS ORDERED: LORazepam 2 MG/1 ML VIAL IV PRN (17:29)
[2021-10-04] MEDS ORDERED: HYDROmorphone INJ 0.5 MG/0.5 ML SYR IV PRN (17:29)
[2021-10-04] MEDS ORDERED: LORazepam 0.5 MG TAB PO PRN (17:29)
[2021-10-04] MEDS ORDERED: ALUMINUM/MAGNESIUM SUSP 30 ML UDC PO PRN (17:29)
[2021-10-04] MEDS ORDERED: LACTATED RINGER'S 1,000 ML IV SCH (17:29)
[2021-10-04] MEDS ORDERED: DO NOT ADMINISTER FLU VACCINE PRN (17:29)
[2021-10-04] MEDS ORDERED: ONDANSETRON 4 MG OD TAB PO PRN (17:29)
[2021-10-04] MEDS ORDERED: ACETAMINOPHEN 1,000 MG/100 ML VIAL IV PRN (17:29)
[2021-10-04] MEDS ORDERED: SOD PHOSPHATE/SOD BIPHOSPHATE ENEMA 132 ML BTL PR PRN (17:29)
[2021-10-04] MEDS ORDERED: METOCLOPRAMIDE HCL INJ 5 MG/ML 2 ML VIAL IV PRN (17:29)
[2021-10-04] MEDS ORDERED: traMADol HCL 50 MG TABLET PO PRN (17:29)
[2021-10-04] MEDS ORDERED: diphenhydrAMINE Capsule 25 MG CAP PO PRN (17:29)
[2021-10-04] MEDS ORDERED: DO NOT ADMINISTER PNEUMOCOCCAL VACCINE PRN (17:29)
[2021-10-04] MEDS ORDERED: hydrOXYzine HCl 25 MG TAB PO PRN (17:29)
[2021-10-04] MEDS ORDERED: FAMOTIDINE 20 MG TAB PO PRN (17:29)
[2021-10-04] MEDS ORDERED: MAGNESIUM HYDROXIDE SUSP 30 ML UDC PO PRN (17:29)
[2021-10-04] MEDS ORDERED: ACETAMINOPHEN 500 MG TAB PO PRN (17:29)
[2021-10-04] MEDS ORDERED: NALOXONE HCL 0.4 MG/1 ML VIAL/CARP IV PRN (17:29)
[2021-10-04] MEDS ORDERED: bisacodyL 10 MG SUPP PR PRN (17:29)
[2021-10-04] MEDS: DOCUSATE SODIUM/SENNA 50/8.6MG TAB PO SCH (20:58)
[2021-10-04] MEDS: ceFAZolin 2000MG 2,000 MG/15 ML SYR IV SCH (23:42)
[2021-10-05] MEDS: HYDROmorphone INJ 1 MG/ML SYRINGE IV PRN ×3 (04:35→19:56)
[2021-10-05 05:21] LABS: Appearance Urine Cloudy (Clear); Bacteria Urine Automated 1+ (Negative); Bilirubin Urine Negative (Negative); Blood Urine Negative (Negative); Color Urine Yellow; Epithelial Cell Urine Auto >30 /lpf (0-5); Glucose Urine UA Negative (Negative); Ketones Urine Negative (Negative); Leukocyte Esterase Urine 3+ (Negative); Nitrite Urine Negative (Negative); Protein Urine Negative (Negative); RBC Urine Automated 0-4 /hpf (0-4); Specific Gravity Urine 1.024 (1.000-1.030); Urobilinogen Urine Negative (Negative); WBC Urine Automated >30 /hpf (0-5); pH Urine 5.5 (4.5-7.5)
[2021-10-05] MEDS: POLYETHYLENE (MIRALAX) 17 GM PACK PO SCH ×4 (06:06→23:49)
[2021-10-05] MEDS: ceFAZolin 2000MG 2,000 MG/15 ML SYR IV SCH (06:07)
[2021-10-05] MEDS: GABAPENTIN 300 MG CAP PO SCH ×4 (08:00→20:40)
[2021-10-05] MEDS: dexAMETHasone 6 MG in SYRINGE 0 ML IV SCH (08:00)
[2021-10-05] MEDS: CHOLECALCIFEROL 1,000 UNITS 25 MCG TAB PO SCH (08:00)
[2021-10-05] MEDS: FAMOTIDINE 40 MG TABLET PO SCH (08:00)
[2021-10-05 08:14] LABS: Basophils # (auto) 0.01 K/uL (0-0.2); Basophils % (auto) 0.1 %; Eosinophils # (auto) 0.02 K/uL (0-0.5); Eosinophils % (auto) 0.1 %; Hematocrit (blood only) 34.4 % (37-47); Hemoglobin 11.6 g/dL (12.0-16.0); Immature Granulocytes # (auto) 0.05 K/uL (0.00-0.02); Immature Granulocytes % (auto) 0.3 %; Lymphocytes # (auto) 3.29 K/uL (1.2-3.4); Lymphocytes % (auto) 19.6 %; Mean Corpuscular Hgb Conc 33.7 g/dL (32-36); Mean Platelet Volume 11.2 fL (7.4-10.4); Monocytes # (auto) 1.79 K/uL (0.11-0.59); Monocytes % (auto) 10.7 %; Neutrophils # (auto) 11.61 K/uL (1.4-6.5); Neutrophils % (auto) 69.2 %; Platelet Count 242 K/uL (130-400); RDW Coefficient of Variation 12.6 % (11.5-14.5); RDW Standard Deviation 42.6 fL (36.4-46.3); Red Blood Count 3.74 M/uL (4.2-5.4); White Blood Count 16.77 K/uL (4.8-10.8)
[2021-10-05 08:38] LABS: BUN Creatinine Ratio 24.4 (10-20); Calcium 8.6 mg/dl (8.5-10.1); Creatinine Clr Calc Pharmacy 66.4 ml/min; Est GFR (African American) 83.3 ml/min; Est GFR (Non-African American) 71.9 ml/min; Potassium 3.8 mmol/L (3.5-5.1)
--- NOTE | 2021-10-05 10:43 | Orthopedic Progress Note ---
Date of Service October 05, 2021 Assessment & Plan (1) Lumbar radiculopathy: Plan: At this time initiate physical therapy monitor EDNA operatively discharge home in the next few days. Admission and Anticipated Discharge Date Admission Date: October 03, 2021 Subjective Back pain is controlled leg symptoms markedly improved Physical Exam Physical Exam: Patient is seen up in bed. She is comfortable. Is good strength testing. Results & Data ([facility]) Vital Signs (Past 12 Hours) Vital Signs Temp Pulse Resp BP Pulse Ox 10/05/21 08:21 36.8 C 75 16 114/67 93 10/05/21 04:30 36.8 C 78 16 96 10/05/21 00:08 36.6 C 75 16 127/81 95
[2021-10-05] MEDS: oxyCODONE HCL IR 5 MG TAB (IMMEDIATE RELEASE) PO PRN (11:42)
[2021-10-05] MEDS: DOCUSATE SODIUM/SENNA 50/8.6MG TAB PO SCH (20:41)
[2021-10-06] MEDS: HYDROmorphone INJ 1 MG/ML SYRINGE IV PRN ×3 (00:50→15:53)
[2021-10-06] MEDS: oxyCODONE HCL IR 5 MG TAB (IMMEDIATE RELEASE) PO PRN ×4 (02:33→21:20)
[2021-10-06] MEDS: POLYETHYLENE (MIRALAX) 17 GM PACK PO SCH ×3 (05:08→17:10)
[2021-10-06] MEDS: FAMOTIDINE 40 MG TABLET PO SCH (08:31)
[2021-10-06] MEDS: dexAMETHasone 6 MG in SYRINGE 0 ML IV SCH (08:32)
[2021-10-06] MEDS: GABAPENTIN 300 MG CAP PO SCH ×4 (08:33→20:27)
[2021-10-06] MEDS: CHOLECALCIFEROL 1,000 UNITS 25 MCG TAB PO SCH (08:33)
--- NOTE | 2021-10-06 10:19 | Orthopedic Progress Note ---
Date of Service October 06, 2021 Assessment & Plan (1) Lumbar radiculopathy: Plan: At this time continue physical therapy monitor EDNA operatively discharge home tomorrow. Admission and Anticipated Discharge Date Admission Date: October 03, 2021 Subjective Pain controlled leg pain improved Physical Exam Physical Exam: Patient is in the chair at the bedside. Is good strength testing. Appears comfortable. Results & Data ([facility]) Vital Signs (Past 12 Hours) Vital Signs Temp Pulse Resp BP Pulse Ox 10/06/21 08:25 36.9 C 74 16 112/65 96 10/05/21 22:55 36.8 C 81 16 113/67 96
[2021-10-06] MEDS: DOCUSATE SODIUM/SENNA 50/8.6MG TAB PO SCH (20:27)
[2021-10-07] MEDS: POLYETHYLENE (MIRALAX) 17 GM PACK PO SCH ×2 (01:22→05:19)
[2021-10-07] MEDS: oxyCODONE HCL IR 5 MG TAB (IMMEDIATE RELEASE) PO PRN ×2 (02:42→08:27)
[2021-10-07] MEDS: HYDROmorphone INJ 1 MG/ML SYRINGE IV PRN (04:00)
[2021-10-07] MEDS: dexAMETHasone 6 MG in SYRINGE 0 ML IV SCH (08:23)
[2021-10-07] MEDS: GABAPENTIN 300 MG CAP PO SCH (08:23)
[2021-10-07] MEDS: FAMOTIDINE 40 MG TABLET PO SCH (08:24)
[2021-10-07] MEDS: CHOLECALCIFEROL 1,000 UNITS 25 MCG TAB PO SCH (08:24)
--- NOTE | 2021-10-07 10:53 | Discharge Summary ---
Date of Service October 07, 2021 Admission HPI Per Admitting Provider Is a very pleasant 61-year-old female who presented to the ER yesterday after receiving the injection from Dr. Norton in the morning. The injection exacerbated her pain. Symptoms have been ongoing since June without precipitating accident, trauma, fall. She has declined over the past 3 days and unable to get out of bed. Normally she is quite active going to the gym and ambulating 5 to 6 miles a day. Current symptoms are 100% left lower extremity involving the left buttock left groin anterior thigh to her knee. Right leg is asymptomatic. Denies bowel bladder changes. She has been taking Tylenol for pain control at home. She has completed a course of physical therapy in June without improvement. Again received [address] Norton yesterday which exacerbated her symptoms therefore leading her to the emergency room. 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 Discharge Data Allergies Allergy/AdvReac Type Severity Reaction Status Date / Time prednisone AdvReac Unknown Anxiety Unverified 10/03/21 11:50 Consultations 10/03/21 12:06 Consult Internal Medicine Routine Procedures Performed Operation Date: 10/04/21 12:30 Actual Procedures p L3-L4 Posterior Lumbar Fusion with Interbody Fusion and spinal cord monitoring (Not Applicable) - Benjamin Abad DO Operation Date: 10/05/21 12:45 <No data on this case meets the specified criteria> Ordered Studies 10/04/21 [place] lumbar spine 2-3V Routine Hospital Course (1) Lumbar radiculopathy: Please change dressing DC drain prior patient was admitted with severe lumbar radiculopathy and progressive strength deficit underwent urgent decompression fusion trial as well as taken orthopedic for possibly. Postop day 1 she was up and ambulating this postoperative to postop day #3 EDNA drain had decreased probably. Excellent strength testing. Pain well controlled. Separately discharged home. Discharge orders instructions from the chart for review. Total Time Total Time Spent Total Time Spent (In Minutes): 20 minutes Discharge Plan Discharge Items Patient Disposition: Home - Self-Care Reason For Visit: BACK PAIN, SHOT FOR PAIN MADE IT WORSE Discharge Diagnosis: Lumbar spinal stenosis with neurogenic claudication Activity: As commented below Non-emergency contact: Primary Care Provider Call non-emergency contact if: you have any medication questions Follow-up/Referrals: Deshaun Pacheco PA-C [Primary Care Provider] - Diet: Regular Addtl Attending Provider Instructions: ACTIVITY RECOMMENDATIONS: SELF CARE INSTRUCTIONS AFTER THORACIC/LUMBAR FUSIONS 1. You may walk to your tolerance. It is good exercise for your legs and back. Expect some back and intermittent leg aches and pains. 2. You may perform "counter-top" level activities (make a sandwich, heriberto with a project, etc.). 3. No bending or lifting of more than 10 pounds or back twisting of any nature (roll like a log when turning in bed). 4. You may ride in a car for 20-30 minutes at a time. No driving until after your first visit with your doctor. 5. Frequent changes of position and restricting sitting to 30 minutes at a time will help limit the amount of back spasms and stiffness you may experience. 6. You may discontinue the use of ambulatory aids (cane, crutches, etc.) once your strength and confidence allow. 7. You may gas inspector the shower and let water strike your incision when you arrive home at least once daily. Do not take a tub bath, sit in a hot tub or go into a swimming pool until after your first recheck in the office. SPECIAL CARE INSTRUCTIONS: VERY IMPORTANT TO READ AND REVIEW A. Your surgical incision has been closed with a cosmetic suture under the skin that will dissolve in about 6 weeks. In 14 days, you can use a pair of clean scissors and cut the suture that is left outside of the skin at the ends of your incision. 1. The small skin tapes can be removed 7 days after surgery if they have not fallen off by that point. 2. You may keep the wound open to air as much as possible to promote healing after post-op day number 5 unless told otherwise by your doctor. 3. If you think the wound looks like it is becoming infected (redness or worsening drainage) and/or you are experiencing fever, chill or worsening back pain and muscle spasms, contact the office so that we may evaluate you as soon as possible. B. Complications are uncommon, but please contact us if you have any signs or symptoms of: 1. wound infection (fever higher than 102.5 degrees F, redness, separation of wound, drainage, or increasing pain from the incision) 2. blood clots in legs (pain, swelling, redness and warmth in legs) 3. urinary tract infection (fever higher than 102.5 degrees F, burning upon urination or increased frequency of urination) 4. nerve problems (inability to walk on your toes or heels, numbness, loss of bowel or bladder control) 5. any other symptoms that concern you C. Please call the office at if you have any concerns or questions about your operation or recovery. D. No smoking! Smoking drastically decreases the chance of a solid fusion. E. Do not take any anti-inflammatory medications (Indocin, Advil, Motrin, Aspirin, Naprosyn, etc.) as these may inhibit the chance of a solid fusion. Tylenol is okay to take for pain. MANAGING PAIN AFTER SPINAL SURGERY 1. Narcotic medication is intended for short-term use and will be provided for surgical pain. Surgical pain usually lasts for a period of 4-6 weeks. Narcotic medication includes Percocet, Vicodin, Darvocet, Tylenol #3 or Lortab. 2. Longer-term pain is more appropriately treated with non-narcotic medication such as Tylenol ES. 3. Muscle spasm is not appropriately treated with narcotics. Muscle relaxers such as Soma, Flexeril or Skelaxin can be used along with Tylenol ES. 4. Remember that we all live with some "aches and pains". This is not unusual or uncommon after an injury or as we get older. a. Back pain is expected and may include muscle spasms for 4 to 6 weeks after surgery. The pain should gradually improve. If the pain worsens for no apparent reason, please contact the office. b. Intermittent leg pain may also be experienced and should not be concerned about unless it worsens for no apparent reason. If so, please contact the office. 5. We will provide appropriate medication within the normal guidelines of their prescribed use. We will also be very cautious and aware of potential abuse and extended duration of patients' medication needs. a. Pain medications are for your comfort and to assist with sleep and rest so that the tissue can heal. They are not provided in order to return to normal activity and should not be used through the day. To do so or worsening pain at night can result from ongoing tissue damage and development of tolerance to the prescribed medicine. 6. Please allow 2-3 days to process refills. Prescriptions will not be mailed but must be picked up at the office. FOLLOW UP VISIT: Keep your scheduled follow-up appointment. Any questions, please call the office at . Pending Studies at Discharge: No Stand-Alone Forms: My [facility], Smoking Cessation Medications and DC Order Prescriptions: New tramadol 50 mg tablet 50 mg PO Q6H PRN (Reason: pain, moderate) Qty: 30 RF: 0 oxycodone 5 mg tablet 5 mg PO Q6H PRN (Reason: pain, severe) Qty: 30 RF: 0 Continued famotidine 40 mg tablet 40 mg PO DAILY Qty: 30 RF: 2 Adult Probiotic 3 billion cell capsule 3,000 mmu cells PO DAILY RF: 0 Hold Instructions: pt reports not taking at this time/taking a break lorazepam [Ativan] 0.5 mg tablet 0.5 mg PO BID PRN (Reason: Anxiety) RF: 0 cholecalciferol (vitamin D3) 25 mcg (1,000 unit) capsule 25 mcg PO DAILY RF: 0 pantoprazole 40 mg tablet,delayed release (DR/EC) 40 mg PO BID Qty: 180 RF: 3 multivitamin Tablet 1 tab PO DAILY RF: 0 gabapentin 300 mg capsule 300 mg PO QID RF: 0 Discharge Orders: Discharge Order (Routine); Ordered 10/07/21 Ordered By: Benjamin Abad Admission Data Admit Date/Time: 10/03/21 12:06 Attending Provider: Benjamin Abad Admit Provider: Benjamin Abad Primary Care Provider: Deshaun Pacheco Other Providers: Triny Curry ; Stoney Balbuena ; Satish Gonzalez ; Jenny Fong V. ; Emily Brock ; Az Palmer ; Alek Ruggiero ; Quan Mendez ; Darin Cuenca ; Paulo Glass ; Randell Cade ; Sade Armenta ; Julianna Davis ; Kimberly Rushing ; Darrick Mares ; Yisel Rangel ; Roberta Cleveland ; Milla Rivera ; Hansel Liao ; Rao Okeefe ; Kalie Maradiaga ; Suze Doss ; Honorio Garcia ; Emily Goldberg ; Sheldon Jimenez ; Timothy Okeefe ; Isak Saini ; Az Harris ; Jason Sarmiento ; Sandhya Simmons ; Prema Wynn ; Justin Damian ; Yisel Costa ; Robert Canseco ; Jaison Fuller ; Barby Morris ; Phong Lemon ; Carlos Jensen.
== END 2021-10-07 12:39 | disposition home or self-care (01) | DRG 455 ==
LOC: ED 09:59 → EDINP 09:59 → OBSVTOIN 12:06 → 3W 16:04